=== PATIENT | male | born 1960 | race Caucasian/White ===

== ENCOUNTER 2023-11-09 09:36 | Day surgery (SDC) | payer OTHER ==
[~2023-11-09] VITALS: Ht 177.8 cm; Wt 97.7 kg
[~2023-11-09 09:36] MED LIST: CEFAZOLIN SODIUM 2 GM/20 ML SYR IV SCH; IBLOOD GLUCOSE TEST STRIP 1 EA TEST VI PRN; LACTATED RINGER'S 1,000 ML IV SCH; LIDOCAINE HCL 1% 5 ML SDV INJ ONE
[2023-11-09 10:02] VITALS: BP 129/68
[2023-11-09] MEDS ORDERED: ADVAIR 250-501 EACH INH (10:07)
[2023-11-09] MEDS ORDERED: VENTOLIN HFA18 GM INH (10:07)
[2023-11-09] MEDS ORDERED: LIDOCAINE HCL 2% 5 ML SDV ONE (10:25)
[2023-11-09] MEDS ORDERED: DEXAMETHASONE SOD PHOS 4 MG/ML VIAL ONE ×2 (10:25→10:55)
[2023-11-09] MEDS ORDERED: MIDAZOLAM HCL 2 MG/2 ML VIAL ONE ×2 (10:25→10:55)
[2023-11-09] MEDS ORDERED: Ropivacaine HCl 0.5% 30 ML VIAL ONE (10:26)
[2023-11-09] MEDS ORDERED: LACTATED RINGER'S 1,000 ML IV ONE (10:55)
[2023-11-09] MEDS ORDERED: propofoL 200 MG/20 ML VIAL ONE (10:55)
[2023-11-09] MEDS ORDERED: METOCLOPRAMIDE HCL 10 MG/2 ML SDV ONE (10:55)
[2023-11-09] MEDS ORDERED: KETAMINE in NS 50 MG/5 ML SYR ONE (10:55)
[2023-11-09] MEDS ORDERED: ondansetron HCL 4 MG/2 ML VIAL ONE (10:55)
[2023-11-09] MEDS ORDERED: FAMOTIDINE 20 MG/ 2 ML VIAL ONE (10:55)
[2023-11-09] MEDS ORDERED: fentaNYL citrate 100 MCG/2 ML VIAL ONE (10:55)
[2023-11-09] MEDS ORDERED: KETOROLAC TROMETHAMINE 30 MG/ML VIAL ONE (10:55)
[2023-11-09] MEDS ORDERED: HYDROCODON-ACE1 EA11 PO (11:56)
[2023-11-09] MEDS ORDERED: CELECOXIB200 MG PO (11:56)
[2023-11-09] MEDS ORDERED: HYDROCODONE/ACETA 7.5/325 TAB PO PRN (12:00)
--- NOTE | 2023-11-09 12:16 | NUR ---
11/09/23 1215 Celena Ponce 1155 PT TO PACU SLEEPING ORAL AIRWAY IN PLACE. O2 ON 9L VIA MASK. FOGGING NOTED IN MASK.
[2023-11-09 12:44] VITALS: BP 125/70
[2023-11-09] MEDS ORDERED: CELECOXIB 200 MG CAP PO SCH (17:00)
--- NOTE | 2023-11-13 06:52 | OR ---
[facility] [address], [place] [address] Signed DATE OF OPERATION: 11/09/2023 SURGEON: Juju Ponce MD PREOPERATIVE DIAGNOSIS: Lateral malleolus fracture, unstable, left. POSTOPERATIVE DIAGNOSIS: Lateral malleolus fracture, unstable, left. PROCEDURE PERFORMED: Open reduction and internal fixation of left lateral malleolus. MANAGER LVN: Leesa Atkinson PA-C. Leesa was present and critical for all portions of procedure. ANESTHESIA: MAC with block. BLOOD LOSS: Less than 50 mL. IMPLANTS: 3.8 x 130 FibuLock with two locking screws. BRIEF HISTORY: Rubin is a 63-year-old gentleman, who suffered a ground level fall at work fracturing his ankle. This was mildly displaced and unstable given the change between two different radiographs. Risks and benefits of operative treatment were discussed with him and he elected to proceed. PROCEDURE IN DETAIL: Once consent was obtained, he was taken to the operating room. After adequate anesthesia, he was placed on the operating table with a hip bump. The left leg was then prepped and draped in standard sterile fashion. The fibula was then marked out using the image intensifier. The fracture was then cross clamped using a bony tenaculum. The distal end of the malleolus was approached through a 1.5 cm incision. Blunt dissection was taken down to the tip of the malleolus. The 1st guide pin was then advanced from the tip of the malleolus across the fracture into the body of the fibula. This was then Electronically Signed By: JUJU PONCE MD 11/13/23 0652 PATIENT NAME: RUBIN BLEVINS OPERATIVE REPORT DATE OF : 58 REPORT #: [id number] PHYSICIAN: JUJU PONCE MD PCP: NO PRIMARY CARE PHYSICIAN REPORT IS CONFIDENTIAL AND NOT TO BE RELEASED WITHOUT AUTHORIZATION [facility] [address], [place] [address] Signed over-reamed using the large reamer. This guide pin was then removed and the long guide steph was advanced all the way up the fibula. This was over-reamed 1st using the 3 and then the 4 mm reamer. There was good space. The FibuLock was then obtained. The guide steph was removed and the FibuLock was advanced from the tip of the lateral malleolus proximally again across the fracture line engaging the body of the fibula proximally. This was then tapped into place until the distal end of the steph was just below the bony surface. The proximal fins were then deployed. The two distal interlocking screws one straight lateral, one anterior lateral were then placed through separate stab incisions. The insertion handle was removed. The final radiograph showed anatomic reduction of the fracture, good placement of the screws and lengths. The wounds were then closed with octavio and dressed with Allevyn and an Blu wrap. He was placed back into his fracture boot. He tolerated the procedure well. All sponge, needle, and instrument counts were correct. Juju Ponce MD BA/CAROLL /[id number] Copies: ~ Electronically Signed By: JUJU PONCE MD 11/13/23 0652 PATIENT NAME: RUBIN BLEVINS OPERATIVE REPORT DATE OF : 58 REPORT #: [id number] PHYSICIAN: JUJU PONCE MD PCP: NO PRIMARY CARE PHYSICIAN REPORT IS CONFIDENTIAL AND NOT TO BE RELEASED WITHOUT AUTHORIZATION
== END 2023-11-09 17:00 | disposition home or self-care (01) ==
LOC: DS 09:36
PROVIDERS: ATTEND Specialist
PROC: 0QSK04Z Reposition Left Fibula with Internal Fixation Device, Open Approach (ICD-10-PCS; principal; 2023-11-09 12:45)
DX: S82.62XA Displaced fracture of lateral malleolus of left fibula, initial encounter for closed fracture (principal); W18.30XA Fall on same level, unspecified, initial encounter; Y92.9 Unspecified place or not applicable
CPT/HCPCS: 01480; 64445; 73600; 76942; C1713; C1769; J0690; J1100; J1885; J2001; J2250; J2405; J2704; J2765; J2795; J3010; J3490; J7121